=== PATIENT | female | born 1960 | race Hispanic/Latino ===

== ENCOUNTER 2018-12-04 14:12 | Inpatient (IN) | payer OTHER ==
[~2018-12-04] VITALS: Ht 157.5 cm; Wt 83.9 kg
[2018-12-04] MEDS ORDERED: HYDROCODONE/APAP 10MG-325MG TAB PO NR (14:30)
[2018-12-04] MEDS ORDERED: ONDANSETRON HCL INJ 2MG/ML 2ML 2 MG/ML VIAL IV STA (15:22)
[2018-12-04] MEDS ORDERED: KETOROLAC TROMETHAMINE 30 MG/ML VIAL IV STA (15:22)
[2018-12-04] MEDS ORDERED: SODIUM CHLORIDE 0.9% 1000ML 1,000 ML IV STA (15:22)
[2018-12-04 15:53] LABS: BASOPHILS % 0.3 % (0.0-1.0); EOSINOPHILS # (AUTO) 0.1 (0.0-0.4); EOSINOPHILS % 1.3 % (0.0-6.0); HEMATOCRIT 40.4 % (34.2-44.1); HEMOGLOBIN 13.6 g/dL (12.0-16.0); LYMPHOCYTES # (AUTO) 1.9 (1.0-3.2); LYMPHOCYTES % 29.7 % (18.0-39.1); MEAN CORPUSCULAR HEMOGLOBIN 31.2 pg (28-32); MEAN CORPUSCULAR HGB CONC 33.7 g/dL (31-35); MEAN CORPUSCULAR VOLUME 92.7 fL (81-99); MONOCYTES # (AUTO) 0.4 (0.2-0.8); MONOCYTES % 5.6 % (4.4-11.3); NEUTROPHILS % 62.8 % (38.7-80.0); PLATELET COUNT 288 x10e3/uL (140-360); RED BLOOD COUNT 4.36 x10e6/uL (3.6-5.1); RED CELL DISTRIBUTION WIDTH 13.3 % (11.7-14.4)
[2018-12-04 16:51] LABS: BILIRUBIN,URINE NEGATIVE (NEGATIVE); CLARITY,URINE SL CLOUDY (CLEAR); COLOR,URINE YELLOW (YELLOW); KETONES,URINE NEGATIVE (NEGATIVE); LEUKOCYTE ESTERASE ,URINE NEGATIVE (NEGATIVE); NITRITE,URINE NEGATIVE (NEGATIVE); PROTEIN,URINE DIPSTICK NEGATIVE (NEGATIVE); URINE UROBILINOGEN 0.2 mg/dL (0.2 - 1)
[2018-12-04 17:04] LABS: BACTERIA,URINE MODERATE /HPF; EPITHELIAL CELLS,URINE MODERATE /LPF
[2018-12-04 17:05] LABS: ALANINE AMINOTRANSFERASE 37 IU/L (0-55); ALBUMIN 3.9 g/dL (3.5-5.0); ALKALINE PHOSPHATASE 177 IU/L (40-150); ANION GAP 15.1 mmol/L (8-16); BLOOD UREA NITROGEN 11 mg/dL (7-26); BUN/CREATININE RATIO 15 (6-25); CALCIUM 9.6 mg/dL (8.4-10.2); CARBON DIOXIDE 24 mmol/L (22-29); CHLORIDE 102 mmol/L (98-107); CREATININE, SERUM 0.72 mg/dL (0.57-1.11); EST GLOMERULAR FILTRATION RATE > 60 ML/MIN (60-); GLUCOSE 99 mg/dL (74-118); POTASSIUM 4.1 mmol/L (3.5-5.1); SODIUM 137 mmol/L (136-145)
[2018-12-04] MEDS: LEVOFLOXACIN 500MG/D5W 100ML 100 ML IV SCH (17:19)
[2018-12-04] MEDS ORDERED: CLINDAMYCIN 600MG / 50ML 50 ML IV SCH (18:00)
--- NOTE | 2018-12-04 18:01 | Diagnostic Imaging Report ---
EXAM: CT of the abdomen and pelvis WITH contrast HISTORY: Abdominal pain, rule out periumbilical abscess versus hernia, history of appendectomy and COMPARISON: None available. TECHNIQUE: The abdomen and pelvis were scanned utilizing a multidetector helical scanner. Coronal and sagittal reformats are provided. PROTOCOL: Routine IV CONTRAST: 100 cc of Isovue-370. ORAL CONTRAST: Water RADIATION DOSE: Total DLP: 710.55 mGy*cm Estimated effective dose: (DLP x 0.015 x size factor) Dose modulation, iterative reconstruction, and/or weight based adjustment of the mA/kV was utilized to reduce the radiation dose to as low as reasonably achievable. COMPLICATIONS: None FINDINGS: LOWER THORAX: Unremarkable. HEPATOBILIARY: No mass. No biliary dilation. No calcified gallstone. SPLEEN: No splenomegaly. PANCREAS: No focal masses or ductal dilatation. ADRENALS: No discrete adrenal nodule. KIDNEYS/URETERS: No hydronephrosis, stones, or definite solid mass lesions. PELVIC ORGANS/BLADDER: The visualized pelvic organs appear unremarkable. GI TRACT: No dilation or wall thickening identified. PERITONEUM / RETROPERITONEUM: No free air or fluid. LYMPH NODES: No pathologically enlarged lymph node. VESSELS: Minimal scattered atherosclerotic vascular calcifications. BONES and JOINTS: No aggressive osseous lesion or acute fracture. SOFT TISSUES: A small fat-containing umbilical hernia. In the superficial periumbilical region there is prominent focal fat stranding, 2.2 cm (AP) x 2.5 cm (ML) x 2.5 cm (CC). No central drainable fluid collection. IMPRESSION: Prominent focal, superficial, fat stranding in the periumbilical region. Considerations include vascular compromise involving the most superficial portion of a small fat-containing umbilical hernia or evolving superficial phlegmon. Signed by: Dr. Evelio Bates D.O., M.M.M. on 12/04/2018 5:57 PM
--- NOTE | 2018-12-04 18:13 | NUR ---
PATIENT AWAKE AND ALERT. RESP EVEN AND UNLABORED. SKIN WARM AND DRY. NO SIGNS OF ACUTE DISTRESS NOTED AT THIS TIME. STATES PAIN "0" NOW AFTER PAIN MEDICATION. EDUCATED PATIENT ON THE CURRENT PLAN OF CARE,VERBALIZED UNDERSTANDING.
[2018-12-04 18:36] LABS: ANISOCYTOSIS MODE; HOWELL-JOLLY BODIES FEW; HYPOCHROMASIA SLIGHT; PLATELET ESTIMATE ADEQUATE; PLATELET MORPHOLOGY COMMENT NORMAL; POIKILOCYTOSIS SLIG; RBC MORPHOLOGY COMMENT ABNORMAL
[2018-12-04] MEDS ORDERED: SODIUM CHLORIDE 0.9% 1000ML 1,000 ML IV SCH (18:47)
[2018-12-04] MEDS ORDERED: DEXTROSE 50% SYRINGE 50 ML IV PRN (19:00)
[2018-12-04] MEDS ORDERED: LEVOFLOXACIN 500MG/D5W 100ML IV SCH (19:00)
[2018-12-04] MEDS ORDERED: MORPHINE SULFATE INJ 4 MG/ML INJ 1ML IV PRN (19:30)
--- NOTE | 2018-12-04 19:33 | NUR ---
VERBAL REPORT GIVEN TO JOSEPH AGOSTO.
--- OUTSIDE RECORDS SUMMARY | 2018-12-04 20:00 | XMS REPORT ---
Author Author [facility] Address Unknown Phone Unavailable Care Team Providers Care Sales Representatives Name Role Phone MOISES GALLARDO Unavailable Unavailable Problems This patient has no known problems. Allergies, Adverse Reactions, Alerts This patient has no known allergies or adverse reactions. Medications This patient has no known medications. Results Test Description Test Time Test Comments Text Results Atomic Results Result Comments CT ABDOMEN/PELVIS W 2018-12-04 17:49:00 [place] [address] Patient Name: EUNICE KAY MR #: [id number] : 1960 Age/Sex: 58/F Req #: [id number] Adm Physician: Ordered by: RACHEL MIKE TELEVISION SPECIALIST Report #: [id number] Location: ER Room/Bed: Procedure: [id number] CT/CT ABDOMEN/PELVIS W Exam Date: 12/04/18 Exam Time: 1730 REPORT STATUS: Signed EXAM: CT of the abdomen and pelvis WITH contrast HISTORY: Abdominal pain, rule out periumbilical abscess versus hernia, history of appendectomy and COMPARISON: None available. TECHNIQUE: The abdomen and pelvis were scanned utilizing a multidetector helical scanner. Coronal and sagittal reformats are provided. PROTOCOL: Routine IV CONTRAST: 100 cc of Isovue-370. ORAL CONTRAST: Water RADIATION DOSE: Total DLP: 710.55 mGy*cm Estimated effective dose: (DLP x 0.015 x size factor) Dose modulation, iterative reconstruction, and/or weight based adjustment of the mA/kV was utilized to reduce the radiation dose to as low as reasonably achievable. COMPLICATIONS: None FINDINGS: LOWER THORAX: Unremarkable. HEPATOBILIARY: No mass. No biliary dilation. No calcified gallstone. SPLEEN: No splenomegaly. PANCREAS: No focal masses or ductal dilatation. ADRENALS: No discrete adrenal nodule. KIDNEYS/URETERS: No hydronephrosis, stones, or definite solid mass lesions. PELVIC ORGANS/BLADDER: The visualized pelvic organs appear unremarkable. GI TRACT: No dilation or wall thickening identified. PERITONEUM / RETROPERITONEUM: No free air or fluid. LYMPH NODES: No pathologically enlarged lymph node. VESSELS: Minimal scattered atherosclerotic vascular calcifications. BONES and JOINTS: No aggressive osseous lesion or acute fracture. SOFT TISSUES: A small fat-containing umbilical hernia. In the superficial periumbilical region there is prominent focal fat stranding, 2.2 cm (AP) x 2.5 cm (ML) x 2.5 cm (CC). No central drainable fluid collection. IMPRESSION: Prominent focal, superficial, fat stranding in the periumbilical region. Cons iderations include vascular compromise involving the most superficial portion of a small fat-containing umbilical hernia or evolving superficial phlegmon. Signed by: Richy Good.O., M.M.M. on 12/04/2018 5:57 PM Dictated By: DA YE DO 56 Transcribed By: BRITT on 12/04/181756 COPY TO: RACHEL MIKE NP
[2018-12-04] MEDS: INSULIN REGULAR, HUMAN 100 UNIT/1 ML 3ML VIAL SQ SCH (21:00)
[2018-12-04] MEDS ORDERED: SODIUM CHLORIDE 0.9% 50ML 50 ML ONE (21:38)
[2018-12-04] MEDS ORDERED: IOPAMIDOL 370 MG/ML 200 ML INFUS..BTL INJ ONE (21:38)
[2018-12-04 22:20] VITALS: BP 175/78
[2018-12-05] VITALS (10 sets, daily range): BP systolic 129–164; BP diastolic 62–72
[2018-12-05] MEDS: ONDANSETRON HCL INJ 2MG/ML 2ML 2 MG/ML VIAL IV PRN ×2 (00:19→10:45)
--- NOTE | 2018-12-05 02:13 | NUR ---
PT IS TRANSFERRED FROM ER .PT IS AOX 3.PT HAS UMBILICAL HERNIA .PT C/P RESPIRATION ARE EVEN AND UNLABORED .SKIN WARM AND DRY TO TOUCH .PT IS NPO ASSESSMENT DONE .ALL LIGHT WITH IN EACH CONTINUE TO MONITOR CALL LIGHT WITH IN REACH CONTINUE TO ,MONITOR
[2018-12-05 05:57] LABS: BASOPHILS % 0.3 % (0.0-1.0); EOSINOPHILS # (AUTO) 0.1 (0.0-0.4); EOSINOPHILS % 0.8 % (0.0-6.0); HEMATOCRIT 37.1 % (34.2-44.1); HEMOGLOBIN 12.1 g/dL (12.0-16.0); LYMPHOCYTES # (AUTO) 1.7 (1.0-3.2); LYMPHOCYTES % 18.7 % (18.0-39.1); MEAN CORPUSCULAR HEMOGLOBIN 30.6 pg (28-32); MEAN CORPUSCULAR HGB CONC 32.6 g/dL (31-35); MEAN CORPUSCULAR VOLUME 93.9 fL (81-99); MONOCYTES # (AUTO) 0.4 (0.2-0.8); NEUTROPHILS # (AUTO) 6.6 (2.1-6.9); NEUTROPHILS % 74.9 % (38.7-80.0); PLATELET COUNT 220 x10e3/uL (140-360); RED BLOOD COUNT 3.95 x10e6/uL (3.6-5.1); RED CELL DISTRIBUTION WIDTH 13.1 % (11.7-14.4)
[2018-12-05] MEDS: CLINDAMYCIN PHOS 900MG/ 50ML 50 ML IV SCH ×5 (06:00→23:30)
[2018-12-05 06:23] LABS: ALANINE AMINOTRANSFERASE 33 IU/L (0-55); ALBUMIN 3.3 g/dL (3.5-5.0); ALBUMIN/GLOBULIN RATIO 0.9 (0.8-2.0); ALKALINE PHOSPHATASE 152 IU/L (40-150); ANION GAP 14.1 mmol/L (8-16); BLOOD UREA NITROGEN 11 mg/dL (7-26); BUN/CREATININE RATIO 15 (6-25); CALCIUM 9.2 mg/dL (8.4-10.2); CARBON DIOXIDE 23 mmol/L (22-29); CHLORIDE 105 mmol/L (98-107); CREATININE, SERUM 0.74 mg/dL (0.57-1.11); EST GLOMERULAR FILTRATION RATE > 60 ML/MIN (60-); GLUCOSE 172 mg/dL (74-118); POTASSIUM 4.1 mmol/L (3.5-5.1); SODIUM 138 mmol/L (136-145)
--- NOTE | 2018-12-05 06:39 | NUR ---
PT RESTING .PT C/O ABD PAIN AND GIVEN MORPHINE WITH ZOFRAN .CALL GANDARA WITH IN REACH .CONTINUE TO MONITOR
--- NOTE | 2018-12-05 06:41 | NUR ---
PT RESTING AND GIVEN PAIN MEDICATION X1 .FAMILY AT THE BEDSIDE .CALL LIGHT WITH IN REACH .CONTINUE TO MONITOR Addendum: 12/05/18 at 0643 by Glen Mendieta RN WRONG PT
--- NOTE | 2018-12-05 07:13 | NUR ---
REPORT GIVEN TO THE CHARGE NURSE
[2018-12-05] MEDS: INSULIN REGULAR, HUMAN 100 UNIT/1 ML 3ML VIAL SQ SCH ×4 (07:30→21:20)
--- NOTE | 2018-12-05 07:31 | NUR ---
Rcvd patient in report this am. Patient is awake in bed at this time. no s/s of distress noted
[2018-12-05] MEDS ORDERED: BUPIVACAINE 0.25%/EPI 30ML SDV INJ ONE (08:15)
[2018-12-05] MEDS ORDERED: BACITRACIN 50,000 UNIT VIAL ONE (08:15)
[2018-12-05] MEDS ORDERED: FENTANYL CITRATE/PF 100MCG/2 ML INJ ONE ×2 (10:15→17:43)
--- NOTE | 2018-12-05 10:34 | NUR ---
received report from PACU. pt is s/p I&D of abscess at the umbilicus. incision site is packed with iodoform and covered with dressing. vital signs are 112/81, hr 65, temp 98.0 degrees F, O2 sat 94% on room air
[2018-12-05] MEDS: HYDROCODONE/APAP 5MG-325MG TAB PO PRN ×2 (11:57→23:55)
--- NOTE | 2018-12-05 14:00 | NUR ---
DR. BURCIAGA at the bedside, discussed with the patient that he was going to consult DR. GUERIN for antibiotic therapy. also gave verbal orders to d/c the IV fluids and saline lock the patient.
--- NOTE | 2018-12-05 14:27 | Consultation ---
DATE OF CONSULTATION: 12/05/2018 CHIEF COMPLAINT: Umbilical pain. HISTORY OF PRESENT ILLNESS: This patient is a 58-year-old female with 1-week history of periumbilical redness, swelling and pain with no fever or chills. No prior episode. The patient was noted to have drainage from the umbilical area in this a.m. PAST MEDICAL HISTORY: Positive for hypertension, diabetes, hypothyroidism. PAST SURGICAL HISTORY: Positive for hysterectomy, appendectomy, and . ALLERGIES: SHE HAS NO DRUG ALLERGIES. SOCIAL HABITS: The patient denies smoking or alcohol abuse. REVIEW OF SYSTEMS: No chest pain, shortness of breath. PHYSICAL EXAMINATION: VITAL SIGNS: Stable. She is afebrile. She is awake, alert, in moderate discomfort. HEENT: Sclerae anicteric. NECK: Supple. LUNGS: Clear. HEART: Regular rate and rhythm. ABDOMEN: Soft. There is periumbilical erythema with a small opening in the depth of the umbilicus with exudative drainage. Abdomen otherwise soft. EXTREMITIES: No cyanosis or edema. LABORATORY DATA: White cell count is 8, hemoglobin of 12. Creatinine of 0.7. CT scan of the abdomen showed inflammatory fat stranding in the periumbilical region. ASSESSMENT: Probable umbilical abscess secondary to suture granuloma. PLAN: Exploration of the umbilical with drainage for abscess and removal of foreign body/suture material. Attendant risks discussed. Scooby Acuña MD DNErin/MODL /[id number]
[2018-12-05] MEDS: LEVOFLOXACIN 500MG/D5W 100ML 100 ML IV SCH (15:45)
--- NOTE | 2018-12-05 16:13 | Operative Report ---
DATE OF PROCEDURE: 12/05/2018 SURGEON: Scooby Acuña MD PREOPERATIVE DIAGNOSES: Umbilical abscess and umbilical hernia. POSTOPERATIVE DIAGNOSES: Umbilical abscess and umbilical hernia. OPERATIVE PROCEDURE: Drainage of umbilical abscess and repair of umbilical hernia. ANESTHESIA: General, Dr. Dailey. INDICATION: A 58-year-old female with one-week history of umbilical pain, swelling, and redness. CT scan showed umbilical hernia with fat stranding in the umbilical region suggestive of evolving infection. The patient is diagnosed with possible umbilical abscess secondary to suture granuloma and she has consented for drainage for abscess, possible removal of suture granuloma and umbilical hernia repair. PROCEDURE FINDING: No suture material found. DESCRIPTION OF PROCEDURE: The patient was brought to OR, intubated. The abdomen was prepped with alcohol and draped in sterile fashion. The small umbilical wound was enlarged in the transverse direction and exploring the depth of the wound, no suture material from prior surgeries found even though the patient has a long low midline scar starting at the umbilicus. Thorough exploration revealed the umbilical hernia approximately 2 cm in size, which is a fascial defect. We then irrigated the wound thoroughly and closed the fascial defect with [id number] stitch of 0 Vicryl suture. The wound was left open and packed with iodoform gauze. Hemostasis achieved. Local anesthesia with 0.25% Marcaine and epinephrine were injected into the wound. The patient was then extubated and transported to recovery room. ESTIMATED BLOOD LOSS: Minimal. Scooby Acuña MD DNL/MODL /[id number]
[2018-12-05] MEDS ORDERED: SODIUM CHLORIDE FLUSH 10 ML SYR INJ PRN (16:15)
[2018-12-05] MEDS: ENOXAPARIN SOD INJ 40 MG/0.4 ML SYR SC SCH (17:00)
[2018-12-05] MEDS ORDERED: MIDAZOLAM HCL 2 MG/2 ML VIAL ONE (17:43)
[2018-12-05] MEDS ORDERED: SEVOFLURANE INHAL SOLN 250 ML PEN BTL ONE (17:43)
[2018-12-05] MEDS ORDERED: PROPOFOL IV EMULSION 10 MG/ML 20 ML VIAL ONE (17:43)
[2018-12-05] MEDS ORDERED: DEXAMETHASONE SOD PHOS INJ 4 MG/ML VIAL ONE (17:43)
[2018-12-05] MEDS ORDERED: ONDANSETRON HCL INJ 2MG/ML 2ML 2 MG/ML VIAL ONE (17:43)
[2018-12-05] MEDS ORDERED: LIDOCAINE HCL 2% LOCAL INJ 5 ML SDV VIAL INJ ONE (17:43)
[2018-12-06] VITALS (8 sets, daily range): BP systolic 115–148; BP diastolic 57–71
--- NOTE | 2018-12-06 00:10 | History and Physical ---
CHIEF COMPLAINT: Umbilical pain. HISTORY OF PRESENT ILLNESS: This is a 58-year-old female, who reports that she has been having this umbilical redness and pain ongoing for the last week. The patient reports initially she thought that after picking up some object that she had pain that it was related to heavy objects. Instead, she reports having some subjective fevers at home. She denies any chest pain, palpitation, nausea, or vomiting. Denies any significant abdominal pain. The patient was concerned and came into the ED for further evaluation. On imaging studies, there was some concern of a possible periumbilical obstruction that ends up being more of a periumbilical superficial phlegmon, in which the patient underwent an incision and drainage by General Surgery. The patient is seen and evaluated at bedside on the medical floor. She is currently doing well with no other complaints at this time. REVIEW OF SYSTEMS: Pertinent positives: Periumbilical pain. Pertinent negatives: Denies any chest pain, palpitation, nausea, vomiting, diarrhea, dysuria, hematuria, frequency, urgency, lightheadedness, dizziness, abdominal pain, headaches, shortness of breath, cough, congestion, fever, or any other complaints. The rest of 14-point review of systems are reviewed with the patient and are negative. ALLERGIES: NO KNOWN DRUG ALLERGIES. HOME MEDICATIONS: None. PAST MEDICAL HISTORY: None. PAST SURGICAL HISTORY: None. FAMILY HISTORY: Hypertension and diabetes. SOCIAL HISTORY: No drugs. No alcohol. Does not smoke. Good social support. PHYSICAL EXAMINATION: VITAL SIGNS: Temperature is 97.8, pulse 66, respiratory rate 16, blood pressure is 135/62, and pulse ox is 97% on room air. GENERAL: Not in acute distress. Alert and oriented x3. Cooperative on examination. HEENT: Head is normocephalic and atraumatic. Eyes; pupils are equal, round, and reactive to light bilaterally. Extraocular movements intact bilaterally. Throat, no evidence of erythema or exudates in the posterior pharynx. Has poor dentition. NECK: Supple. Good range of motion. PULMONARY: Clear to auscultation bilaterally. No wheezing, no rales, no rhonchi, no crackles appreciated. CARDIOVASCULAR: Positive S1, S2. No murmurs, rubs, or gallops appreciated. ABDOMEN: Soft, nondistended, and nontender to palpation. Bowel sounds present. MUSCULOSKELETAL: Strength is 5/5 throughout. No evidence of any muscles deficits on examination. No weakness appreciated. NEUROLOGIC: Cranial nerves II through XII are grossly intact. No evidence of any neurological deficits on exam. SKIN: Intact. Warm to touch. Good cap refill. There is a periumbilical incision and drainage performed by Dr. Acuña, now currently covered with gauze. PSYCHIATRIC: Normal affect and mood. EXTREMITIES: No edema. Good range of motion throughout. LAB FINDINGS: Show white count 8.8, hemoglobin 12, hematocrit is 37, and platelets of 220. Chemistry; sodium 138, potassium 4.1, chloride 105, bicarb 23, anion gap of 14, BUN is 11, creatinine is 0.74, glucose is 172, calcium 9.2, AST 25, ALT 33, alkaline phosphatase 152, total protein 6.8, albumin 3.3. Urinalysis was negative. MICROBIOLOGY: Urine cultures were negative. Wound cultures are pending. IMAGING STUDIES: CT abdomen and pelvis shows a prominent focal superficial fat stranding in the periumbilical region involved in superficial phlegmon. IMPRESSION: 1. Abdominal wall periumbilical abscess, status post incision with underlying cellulitis. 2. Subjective fever. PLAN: At this time, the patient underwent status post incision and drainage at bedside by General Surgery. A wound culture was sent. Urine cultures were negative. Continue with IV antibiotics for now. Follow General Surgery recommendations. ID consultation. Put on Lovenox for DVT prophylaxis and continue with home medications. MD NATHAN Camejo/JULIAN /[id number]
[2018-12-06] MEDS: CLINDAMYCIN PHOS 900MG/ 50ML 50 ML IV SCH ×3 (05:51→17:07)
[2018-12-06 05:56] LABS: BASOPHILS % 0.1 % (0.0-1.0); EOSINOPHILS % 0.1 % (0.0-6.0); HEMATOCRIT 34.4 % (34.2-44.1); HEMOGLOBIN 11.2 g/dL (12.0-16.0); LYMPHOCYTES # (AUTO) 2.3 (1.0-3.2); LYMPHOCYTES % 28.8 % (18.0-39.1); MEAN CORPUSCULAR HEMOGLOBIN 30.7 pg (28-32); MEAN CORPUSCULAR HGB CONC 32.6 g/dL (31-35); MEAN CORPUSCULAR VOLUME 94.2 fL (81-99); MONOCYTES # (AUTO) 0.4 (0.2-0.8); MONOCYTES % 5.5 % (4.4-11.3); NEUTROPHILS # (AUTO) 5.1 (2.1-6.9); NEUTROPHILS % 65.2 % (38.7-80.0); PLATELET COUNT 247 x10e3/uL (140-360); RED BLOOD COUNT 3.65 x10e6/uL (3.6-5.1); RED CELL DISTRIBUTION WIDTH 13.2 % (11.7-14.4)
[2018-12-06 06:21] LABS: ANION GAP 14.1 mmol/L (8-16); BLOOD UREA NITROGEN 12 mg/dL (7-26); BUN/CREATININE RATIO 17 (6-25); CALCIUM 9.3 mg/dL (8.4-10.2); CARBON DIOXIDE 23 mmol/L (22-29); CHLORIDE 106 mmol/L (98-107); CREATININE, SERUM 0.69 mg/dL (0.57-1.11); EST GLOMERULAR FILTRATION RATE > 60 ML/MIN (60-); GLUCOSE 162 mg/dL (74-118); POTASSIUM 4.1 mmol/L (3.5-5.1); SODIUM 139 mmol/L (136-145)
--- NOTE | 2018-12-06 07:18 | NUR ---
RECEIVED PATIENT AWAKE RESTING IN BED NO SIGNS OF DISTRESS. BED LOW, WHEELS LOCKED, SIDE RAILS X2. CALL LIGHT IN REACH. WILL CONTINUE TO MONITOR PATIENT.
[2018-12-06] MEDS: INSULIN REGULAR, HUMAN 100 UNIT/1 ML 3ML VIAL SQ SCH ×4 (07:30→20:46)
--- NOTE | 2018-12-06 09:30 | NUR ---
PATIENT A/O X3, EVEN RESPIRATIONS ON RA. ABDOMINAL DRESSING INTACT WITH MINIMAL DRAINAGE. PATIENT DENIES PAIN AT THIS TIME. LEFT AC 20 GAUGE IV SL. IV INTACT AND PATENT. PATIENT AMBULATES INDEPENDENTLY. VITAL SIGNS STABLE. CALL LIGHT IN REACH. WILL CONTINUE TO MONITOR PATIENT.
[2018-12-06] MEDS: HYDROCODONE/APAP 5MG-325MG TAB PO PRN (12:11)
--- NOTE | 2018-12-06 14:00 | NUR ---
DRESSING CHANGE DONE. REMOVED OLD IODOFORM AND PACKED NEW IODOFORM. WOUND COVERED WITH ABD PAD.
--- NOTE | 2018-12-06 14:45 | NUR ---
Nutrition Screen Note RD Recommendation for Physician: -Continue current diet as ordered Plan of Care: RD following, monitoring for tolerance and adequacy Nutrition reason for involvement: Nutrition Risk Trigger MST Primary Diagnose(s): Abdominal wall periumbilical abscess, status post incision with underlying cellulitis. PMH: None Ht: 62in Wt: 210lb verified with bedscale BMI: 38.4kg/m2 IBW: 110lb +/- 10% RD Assessment: (12/06) Chart reviewed. Labs and meds reviewed. 58yo F, who was admitted for umbilical pain. Visited pt in the room. Pt reported good appetite with 100% meal intake. Pt complained of some abdominal discomfort but denied any nausea or vomiting. Pt also denied any chewing or swallowing difficulty. Weight has been stable with reported UBW ~200-205lbs. Will continue to monitor and follow. Current Diet: ADA 1800 Malnutrition Evaluation (12/06/2018) The patient does not meet criteria for a specified degree of malnutrition at this time. Will re-evaluate at follow-up as appropriate. Diet Education Needs Assessment: Diet education not indicated. Nutrition Care Level: low Signed: Raquel Rees, MS, RD, LD
[2018-12-06] MEDS: LEVOFLOXACIN 500MG/D5W 100ML 100 ML IV SCH (15:15)
--- NOTE | 2018-12-06 16:20 | Consultation ---
DATE OF CONSULTATION: REASON FOR CONSULTATION: This patient has umbilical abscess, abdominal abscess. HISTORY OF PRESENT ILLNESS: This patient, who is a 58-year-old female, comes in with abdominal pain. She said a week ago she was at work and she put something heavy trash. She said after she picked up, she suffered abdominal pain. She reported to her worker and went to see physician at [facility], gave her some ibuprofen, but continues to have abdominal pain. There was concern that maybe there is something more, so she was sent here. She was seen by Dr. Mobley yesterday. She was found to have superficial phlegmon, underwent I and D, and I was asked to see her. PAST MEDICAL HISTORY: She denies. PAST SURGICAL HISTORY: She denies. ALLERGIES: NKA. SOCIAL HISTORY: There is no smoking, drug abuse, or alcohol abuse. FAMILY HISTORY: Noncontributory. REVIEW OF SYSTEMS: At present time: HEENT: Negative. PULMONARY: Negative. CARDIAC: Negative. : Negative. As above. LABORATORY DATA: Reviewed. White count 6.3, today 7.88, and hemoglobin of 11.2. Sodium 139, potassium 4.1, and creatinine 0.69. MEDICATION LIST: She is currently on clindamycin and levofloxacin. PHYSICAL EXAMINATION: GENERAL: She is currently alert and oriented, does not seem to be in acute distress. VITAL SIGNS: Stable. Currently afebrile. HEENT: She is not icteric. NECK: Supple. CHEST: Clear. HEART: S1 and S2. No murmur. ABDOMEN: Soft. Bowel sounds present. I do not see any erythema or edema at the present time. IMPRESSION: Abdominal wall abscesses, status post debridement. Continue with IV antibiotic. Await culture and sensitivity. Can change to oral antibiotics soon once we have sensitivity. Continue with local care. MD ROBSON La/JULIAN /[id number]
[2018-12-06] MEDS: ENOXAPARIN SOD INJ 40 MG/0.4 ML SYR SC SCH (17:07)
--- NOTE | 2018-12-06 20:06 | Progress Note ---
DATE: 12/06/2018 Medicine Progress Note SUBJECTIVE: The patient is doing well today with no complaints. Reports just some minimal pain around the incision site. PHYSICAL EXAMINATION: VITAL SIGNS: She is afebrile, normotensive, and respiratory rate is good. GENERAL: In no acute distress, alert, and oriented x3. Cooperative on examination. HEENT: Head is normocephalic and atraumatic. Eyes, pupils are equal, round, and reactive to light bilaterally. Extraocular movements are intact bilaterally. Throat, no evidence of erythema or exudates in the posterior pharynx. Has poor dentition. NECK: Supple. Good range of motion. PULMONARY: Clear to auscultation bilaterally. No wheezing, no rales, no rhonchi, no crackles appreciated. CARDIOVASCULAR: Positive S1, S2. No murmurs, rubs, or gallops appreciated. ABDOMEN: Soft, nondistended, and nontender to palpation. Bowel sounds present. MUSCULOSKELETAL: Strength is 5/5 throughout. No evidence of any muscle deficits on examination. No weakness appreciated. NEUROLOGICAL: Cranial nerves II through XII grossly intact. No evidence of any neurological deficits on exam. SKIN: Intact. Warm to touch. Good cap refill. PSYCHIATRIC: Normal affect and mood. EXTREMITIES: No edema. Good range of motion throughout. LABORATORY DATA: Reviewed and stable. MICROBIOLOGY: Wound cultures are pending. IMPRESSION: 1. Abdominal wall periumbilical abscess, status post incision and drainage with underlying cellulitis. 2. Subjective fever. PLAN: At this time, continue monitoring wound cultures. ID is following. IV antibiotics as ordered. Urine cultures are negative. Surgery is following as well. Continue same plan of care and monitor closely. MD NATHAN Camejo/JULIAN /[id number]
[2018-12-07] VITALS (8 sets, daily range): BP systolic 121–156; BP diastolic 57–81
[2018-12-07] MEDS: CLINDAMYCIN PHOS 900MG/ 50ML 50 ML IV SCH ×2 (01:07→06:30)
[2018-12-07] MEDS: HYDROCODONE/APAP 5MG-325MG TAB PO PRN (01:13)
--- NOTE | 2018-12-07 07:13 | NUR ---
BEDSIDE REPORT GIVEN TO ONCOMING NURSE. PATIENT IN STABLE CONDITION. NO NEEDS VOICED AT THIS TIME. BED LOCKED AND IN LOWEST POSITION, CALL LIGHT WITHIN EASY REACH.
[2018-12-07] MEDS: INSULIN REGULAR, HUMAN 100 UNIT/1 ML 3ML VIAL SQ SCH ×4 (07:30→22:00)
[2018-12-07] MEDS ORDERED: CEFEPIME HCL 1 GM VIAL IV SCH (09:30)
[2018-12-07] MEDS ORDERED: SODIUM CHLORIDE 0.9% 250ML 250 ML ONE (10:52)
[2018-12-07] MEDS: CEFEPIME 1GM/NS 0.9% 50 ML 50 ML IV SCH ×2 (10:59→22:00)
[2018-12-07] MEDS: VANCOMYCIN 1GM/NS 250 ML 250 ML IV SCH ×2 (11:00→22:35)
[2018-12-07] MEDS: ENOXAPARIN SOD INJ 40 MG/0.4 ML SYR SC SCH (17:00)
--- NOTE | 2018-12-07 21:21 | Progress Note ---
DATE: 12/07/2018 Medicine Progress Note SUBJECTIVE: The patient is doing well today with no complaints. No overnight events. PHYSICAL EXAMINATION: VITAL SIGNS: Temperature is 96.5, pulse 68, respiratory rate is 20, blood pressure 156/71, and pulse ox 96% on room air. GENERAL: Not in acute distress. Alert and oriented x3. Cooperative on examination. HEENT: Head; normocephalic, atraumatic. Eyes; pupils are equal, round, and reactive to light bilaterally. Extraocular movements intact bilaterally. Throat; no evidence of erythema or exudates in the posterior pharynx. Has poor dentition. NECK: Supple. Good range of motion. PULMONARY: Clear to auscultation bilaterally. No wheezing, rhonchi, or crackles appreciated. CARDIOVASCULAR: Positive S1 and S2. No murmurs, rubs, or gallops appreciated. ABDOMEN: Soft, nondistended, and nontender to palpation. Bowel sounds present. MUSCULOSKELETAL: Strength is 5/5 throughout. No evidence of any muscle deficits on examination. No weakness appreciated. NEUROLOGIC: Cranial nerves II through XII grossly intact. No evidence of any neurological deficits on exam. SKIN: Intact. Warm to touch. Good cap refill. PSYCHIATRIC: Normal affect and mood. EXTREMITIES: No edema. Good range of motion throughout. LABORATORY FINDINGS: Show white count 7.8, hemoglobin 8.2, hematocrit is 34, and platelets of 247. Chemistry; sodium was 139, potassium was 4.1, chloride was 106, bicarbonate was 23, actually BUN was 12, creatinine was 0.69. MICROBIOLOGY: Wound cultures are pending currently, which is still preliminary. IMPRESSION: 1. Abdominal wall periumbilical abscess, status post incision and drainage with underlying cellulitis. 2. Subjective fever, resolved. PLAN: At this time, we are waiting for final results on the wound cultures. General Surgery had said the patient can be discharged to home. I discussed the case with ID and would like to monitor overnight. Likely discharge tomorrow on oral antibiotics. The wound dimension looks pretty good and possibly discharge home tomorrow. MD NATHAN Camejo/JULIAN /[id number]
[2018-12-08] MEDS: HYDROCODONE/APAP 5MG-325MG TAB PO PRN ×2 (00:26→10:12)
[2018-12-08 00:36] VITALS: BP 169/70
[2018-12-08 05:02] VITALS: BP 133/63
[2018-12-08 06:57] LABS: BASOPHILS % 0.8 % (0.0-1.0); EOSINOPHILS # (AUTO) 0.2 (0.0-0.4); HEMATOCRIT 37.6 % (34.2-44.1); HEMOGLOBIN 12.3 g/dL (12.0-16.0); LYMPHOCYTES # (AUTO) 2.2 (1.0-3.2); LYMPHOCYTES % 42.8 % (18.0-39.1); MEAN CORPUSCULAR HEMOGLOBIN 30.7 pg (28-32); MEAN CORPUSCULAR HGB CONC 32.7 g/dL (31-35); MEAN CORPUSCULAR VOLUME 93.8 fL (81-99); MONOCYTES # (AUTO) 0.3 (0.2-0.8); MONOCYTES % 5.9 % (4.4-11.3); NEUTROPHILS # (AUTO) 2.3 (2.1-6.9); NEUTROPHILS % 46.3 % (38.7-80.0); PLATELET COUNT 237 x10e3/uL (140-360); RED BLOOD COUNT 4.01 x10e6/uL (3.6-5.1); RED CELL DISTRIBUTION WIDTH 13.2 % (11.7-14.4)
[2018-12-08 07:02] LABS: ANION GAP 13.1 mmol/L (8-16); BLOOD UREA NITROGEN 13 mg/dL (7-26); BUN/CREATININE RATIO 20 (6-25); CALCIUM 9.2 mg/dL (8.4-10.2); CARBON DIOXIDE 23 mmol/L (22-29); CHLORIDE 106 mmol/L (98-107); CREATININE, SERUM 0.64 mg/dL (0.57-1.11); EST GLOMERULAR FILTRATION RATE > 60 ML/MIN (60-); GLUCOSE 129 mg/dL (74-118); POTASSIUM 4.1 mmol/L (3.5-5.1); SODIUM 138 mmol/L (136-145)
--- NOTE | 2018-12-08 07:22 | NUR ---
report given to oncoming nurse. patient in stable condition.
[2018-12-08] MEDS: INSULIN REGULAR, HUMAN 100 UNIT/1 ML 3ML VIAL SQ SCH ×2 (07:30→14:49)
[2018-12-08 09:04] VITALS: BP 143/80
[2018-12-08] MEDS: CEFEPIME 1GM/NS 0.9% 50 ML 50 ML IV SCH (10:08)
[2018-12-08 10:19] VITALS: BP 143/80
[2018-12-08] MEDS: VANCOMYCIN 1GM/NS 250 ML 250 ML IV SCH (11:39)
[2018-12-08 12:00] VITALS: BP 166/79
[2018-12-08] MEDS ORDERED: KEFLEX500 MG PO (15:23)
--- NOTE | 2018-12-09 01:16 | Discharge Summary ---
FINAL DISCHARGE DIAGNOSIS: Abdominal wall periumbilical abscess, status post incision and drainage with underlying cellulitis. CONSULTANTS: General surgery, Infectious Disease. VITAL SIGNS: Temperature is 97.2, pulse 64, respiratory rate 18, blood pressure was 143/80, pulse ox 98% on room air. LAB FINDINGS: Show white count 5, hemoglobin 12, hematocrit 37.6, and platelets of 237. Chemistry; sodium 138, potassium 4.1, chloride 106, bicarb 23, anion gap of 15, BUN 13, creatinine 0.64, glucose 129, calcium is 9.2, total bilirubin is 0.9, AST is 25, ALT is 33, alkaline phosphatase is 152, albumin is 3.3. Urinalysis was found to be negative. MICROBIOLOGY: Wound cultures showed regular skin olya, some rare gram-positive cocci in pairs and few gram-positive rods. Urine cultures were negative. IMAGING STUDIES: CT abdomen and pelvis showed prominent focal superficial fat stranding in the periumbilical region. Showed some small fat containing umbilical hernia and involved superficial phlegmon. HOSPITAL COURSE: This is a 58-year-old female, came in with complaints of worsening periumbilical pain, found to be phlegmon, cellulitis, abscess, in which Dr. Acuña was consulted. The patient underwent status post incision and drainage of the actual underlying abscess in the periumbilical area. ID was consulted. The patient was on broad-spectrum IV antibiotics. The area of the periumbilical cellulitis and abscess improved throughout the hospital course. The patient was then cleared for discharge by both General Surgery and ID, and the patient was discharged on oral Keflex x7 days as per Infectious Disease recommendations. The patient was doing well prior to being discharged with no other complaints and back to normal baseline. On the day of discharge, vital signs were stable, labs reviewed and stable. The patient seen, evaluated, and examined thoroughly on the day of discharge. No other complaints. The patient verbalized understanding and agreed with plan of care to follow up as an outpatient with the primary care physician in 1 week and General Surgery and ID in 2 weeks time. MEDICATIONS: See med reconciliation form. DISPOSITION: Home. CONDITION: Stable. DIET: Heart healthy. In the event of any worsening symptoms, the patient was advised to come back to the ED for further evaluation. Discharge summary took greater than 35 minutes. MD NATHAN Camejo/JULIAN /[id number]
== END 2018-12-08 16:33 | disposition home or self-care (01) | DRG 354 ==
LOC: ER 14:12 → ERHOLD 19:55 → MED/SURG 21:53
PROVIDERS: ADMIT Internal Medicine; ATTEND Internal Medicine
PROC: 0WQF0ZZ Repair Abdominal Wall, Open Approach (ICD-10-PCS; 2018-12-05)
PROC: 0J9C0ZZ Drainage of Pelvic Region Subcutaneous Tissue and Fascia, Open Approach (ICD-10-PCS; principal; 2018-12-05 09:23)
DX: K42.9 Umbilical hernia without obstruction or gangrene (principal); L02.216 Cutaneous abscess of umbilicus; L03.316 Cellulitis of umbilicus; T81.89XA Other complications of procedures, not elsewhere classified, initial encounter
CPT/HCPCS: 36415; 74177; 80048; 80053; 81001; 82948; 85025; 87071; 87075; 87086; 87205; 96372; 99284; J0692; J1100; J1650; J1885; J1956; J2001; J2250; J2270; J2405; J3010; J3370; J7030; J7050; Q9967